=== PATIENT | female | born 1990 | race Caucasian/White ===

== ENCOUNTER 2017-07-18 19:20 | Emergency (ER) | payer MEDICAID ==
[~2017-07-18] VITALS: Ht 157.4 cm; Wt 63.5 kg
[~2017-07-18 19:20] MED LIST: ALBUTEROL0.09 MG/A2 IH; AMOXICILLIN500 MG PO; BUSPAR15 MG PO; CLARITIN10 MG PO; COLACE100 MG PO; DIFLUCAN150 MG PO; FLINTSTONES1 CTB PO; IRON325 M1 PO; MACROBID100 M1 PO; MOTRIN800 MG PO; PERCOCET 325 MG1 TA5 PO; PRENATAL1 TA1 PO; PROCARDIA10 MG PO; REGLAN10 MG PO; ROBAXIN500 MG PO; TRAMADOL HCL50 MG PO; VICODIN 5/500 505 MG PO; ZITHROMAX Z PA250 MG PO; ZOFRAN4 MG; Zofran4 MG PO; [UNRECOGNIZED DRUG - REMARK]
== END 2017-07-18 19:40 | disposition home or self-care (01) ==
LOC: ED 19:20
DX: Z02.1 Encounter for pre-employment examination (principal); F17.200 Nicotine dependence, unspecified, uncomplicated; Z98.51 Tubal ligation status; Z79.899 Other long term (current) drug therapy

== ENCOUNTER 2019-07-16 08:12 | Emergency (ER) | payer OTHER ==
[~2019-07-16] VITALS: Ht 157.4 cm; Wt 70.8 kg
[2019-07-16] MEDS ORDERED: PREDNISONE50 MG PO (08:39)
[2019-07-16] MEDS ORDERED: ZITHROMAX250 MG PO (08:39)
== END 2019-07-16 08:55 | disposition home or self-care (01) ==
LOC: ED 08:12
DX: J20.9 Acute bronchitis, unspecified (principal); R19.7 Diarrhea, unspecified; F17.200 Nicotine dependence, unspecified, uncomplicated; Z79.899 Other long term (current) drug therapy

== ENCOUNTER 2019-10-02 18:51 | Emergency (ER) | payer OTHER ==
[~2019-10-02] VITALS: Ht 157.4 cm; Wt 65.8 kg
[~2019-10-02 18:51] MED LIST changes: +PREDNISONE50 MG PO; +ZITHROMAX250 MG PO
[2019-10-02 20:16] LABS: BASO # 0.1 10*3/uL (0.0-0.1); BASO % 0.4 % (0.0-1.0); EOS # 0.1 10*3/uL (0.0-0.4); EOS % 0.5 % (1.0-4.0); HEMATOCRIT 35.9 % (37.0-47.0); HEMOGLOBIN 11.1 g/dl (12.0-16.0); LYMPH # 1.8 10*3/uL (1.3-4.4); LYMPH % 13.1 % (27.0-41.0); MEAN CELL VOLUME 83.1 fl (81.0-99.0); MEAN CORPUSCULAR HGB 25.7 pg (27.0-31.0); MEAN CORPUSCULAR HGB CONC 30.9 g/dl (33.0-37.0); MONO # 0.9 10*3/uL (0.1-1.0); MONO % 6.8 % (3.0-9.0); NEUT # 10.9 10*3/uL (2.3-7.9); NEUT % 78.8 % (47.0-73.0); PLATELET COUNT AUTOMATED 249 10*3/uL (130-400); RED BLOOD COUNT 4.32 10*6/uL (4.10-5.10); RED CELL DISTRI WIDTH 17.3 % (0-14.5); WHITE BLOOD COUNT 13.9 10*3/uL (4.8-10.8)
[2019-10-02 20:31] LABS: ALBUMIN 3.9 gm/dl (3.1-4.5); ALKALINE PHOSPHATASE 63 U/L (45-117); BUN 6 mg/dl (7-24); CHLORIDE 109 mmol/L (98-107); CREATININE 0.83 mg/dL (0.55-1.02); LIPASE 29 U/L (73-393); POTASSIUM 3.6 mmol/L (3.5-5.1); SGOT/AST 26 IU/L (3-35); SGPT/ALT 33 U/L (12-78); SODIUM 139 mmol/L (136-145); TOTAL PROTEIN 7.3 gm/dL (6.4-8.2)
[2019-10-02 20:33] LABS: BILIRUBIN NEGATIVE (NEGATIVE); BLOOD NEGATIVE (NEGATIVE); CLARITY CLEAR (CLEAR); COLOR YELLOW (YELLOW); GLUCOSE NEGATIVE (NEGATIVE); KETONE NEGATIVE (NEGATIVE); LEUKO ESTERASE TRACE (NEGATIVE); NITRITE NEGATIVE (NEGATIVE); PH 8.5 (5.0-9.0); UROBILINOGEN 0.2 E.U./dl (0.2-1.0)
[2019-10-02 20:58] LABS: BACTERIA TRACE
[2019-10-03] MEDS ORDERED: TESSALON PERLE100 M1 PO (00:55)
== END 2019-10-03 01:05 | disposition home or self-care (01) ==
LOC: ED 18:51
PROVIDERS: Emergency Medicine
DX: B34.9 Viral infection, unspecified (principal); E86.0 Dehydration; R11.2 Nausea with vomiting, unspecified; R19.7 Diarrhea, unspecified; F12.90 Cannabis use, unspecified, uncomplicated; Z79.2 Long term (current) use of antibiotics; Z79.899 Other long term (current) drug therapy